=== PATIENT | female | born 1955 | race Caucasian/White ===

== ENCOUNTER 2016-07-16 15:33 | Observation (INO) | payer OTHER ==
--- NOTE | 2016-07-16 15:56 | CPEKG ---
Heart Rate: 112 RR Interval: 536 P-R Interval: 188 QRSD Interval: 88 QT Interval: 336 QTC Interval: 459 P [place]: 27 QRS [place]: 24 T Wave [place]: 24 EKG Severity - OTHERWISE NORMAL ECG - EKG Impression: SINUS TACHYCARDIA Electronically Signed By: Luigi Ramachandran 16-Jul-2016 16:17:08
[2016-07-16] MEDS ORDERED: NS 1,000 ML IV ONE ×2 (16:05→18:10)
--- NOTE | 2016-07-16 16:13 | EDPHY ---
H & P Stated Complaint: SOB, tingling all over body, L arm, face and jaw-1430 Time Seen by Provider: 07/16/16 15:43 HPI/ROS: CHIEF COMPLAINT: Weakness HISTORY OF PRESENT ILLNESS: The patient is a 60-year-old female who comes to the emergency department complaining of generalized weakness for the last week or 2 and now feeling of shortness of breath for the last 2 days and now for the last several hours tingling to both feet, hands, left arm and left side of her lips. She does not have any focal weakness. She has a history of severe Parkinson's disease. Her family seems to think that her symptoms began about 3 weeks ago when she had Botox injections her feet to control her toes from curling. She has been generally weak since that time. They state that this is normal but usually resolved after a couple of days. Also a week ago she saw her neurologist Dr. Pierre at [facility] ([place], [place]) [phone]. They decreased her Sinemet from 0.5 mg 4 times a day 0.25 mg 4 times a day also decreased her year becker from 1.5 mg to 1 mg. Also she has decreased her clonazepam from half a mg nightly to 0.25 mg every other night and added melatonin for sleep. She also began taking CBD well yesterday again. She has taken it in the past to help her with her dyskinesia symptoms. This is the same reason why she has decreased all of her other Parkinson's medications. She has not had any cold or cough symptoms. No fevers. REVIEW OF SYSTEMS: Constitutional: See HPI denies: chills, fever, recent illness, recent injury EENTM: denies: blurred vision, double vision, nose congestion Respiratory: denies: cough, shortness of breath Cardiac: denies: chest pain, irregular heart rate, lightheadedness, palpitations Gastrointestinal/Abdominal: denies: abdominal pain, diarrhea, nausea, vomiting, blood streaked stools Genitourinary: denies: dysuria, frequency, hematuria, pain Musculoskeletal: denies: joint pain, muscle pain Skin: denies: lesions, rash, jaundice, bruising Neurological: denies: headache, numbness, paresthesia, tingling, dizziness, weakness Hematologic/Lymphatic: denies: blood clots, easy bleeding, easy bruising Immunologic/allergic: denies: HIV/AIDS, transplant EXAM: GENERAL: Fatigued , well-nourished and in no acute distress. HEAD: Atraumatic, normocephalic. EYES: Pupils equal round and reactive to light, extraocular movements intact, sclera anicteric, conjunctiva are normal. ENT: TMs normal, nares patent, oropharynx clear without exudates. Moist mucous membranes. NECK: Normal range of motion, supple without lymphadenopathy or JVD. LUNGS: No respiratory distress, Breath sounds clear to auscultation bilaterally and equal. No wheezes rales or rhonchi. HEART: Regular rate and rhythm without murmurs, rubs or gallops. ABDOMEN: Soft, nontender, normoactive bowel sounds. No guarding, no rebound. No masses appreciated. BACK: No CVA tenderness, no spinal tenderness, step-offs or deformities EXTREMITIES: Normal range of motion, no pitting or edema. No clubbing or cyanosis. NEUROLOGICAL: Cranial nerves II through XII grossly intact. Normal speech, normal gait. 5/5 strength, normal movement in all extremities, normal sensation NIH stroke score 0, no pronator drift. PSYCH: Normal mood, normal affect. SKIN: Warm, dry, normal turgor, no visible rashes or lesions. Source: Patient Exam Limitations: No limitations - Personal History Current Tetanus/Diphtheria Vaccine: Yes Current Tetanus Diphtheria and Acellular Pertussis (TDAP): Yes Tetanus Vaccine Date: 2009 - Medical/Surgical History Hx Asthma: No Hx Chronic Respiratory Disease: No Hx Diabetes: No Hx Cardiac Disease: Yes Hx Renal Disease: No Hx Cirrhosis: No Hx Alcoholism: No Hx HIV/AIDS: No Hx Splenectomy or Spleen Trauma: No Other PMH: HTN, Hyperlipidemia, Parkinsons, cyst removed from chest 01.22, tubal ligation, angiogram x neg - Family History Significant Family History: No pertinent family hx - Social History Smoking Status: Never smoked Alcohol Use: Sober Drug Use: None Constitutional: Initial Vital Signs Temperature (C) 36.5 C 07/16/16 15:36 Heart Rate 120 H 07/16/16 15:36 Respiratory Rate 16 07/16/16 15:36 Blood Pressure 204/108 H 07/16/16 15:36 O2 Sat (%) 95 07/16/16 15:36 O2 Delivery Mode Nasal Cannula O2 (L/minute) 3 Allergies/Adverse Reactions: Iodinated Contrast Media - Oral and [IV Dye, Iodine Containing Contrast ] Allergy (Unknown, Verified 07/16/16 15:39) Home Medications: Medication Instructions Recorded Carbidopa/Levodopa 25/100Mg 0.25 - 0.5 tab PO QID 08/12/11 [Sinemet 25/100 MG (*)] [place]-3 Fatty Acids [Fish Oil 1000 1,000 mg PO DAILY 08/12/11 mg (OTC)] Cholecalciferol Vit D3 [Vitamin D3 3,000 unit PO DAILY 02/11/14 (*)] Entacapone [Comtan] 200 mg PO QID 02/11/14 Rosuvastatin Calcium [Crestor] 5 mg PO DAILY 02/11/14 Vitamin B Complex [B Complex] 1 each PO DAILY 02/11/14 amLODIPine BESYLATE [Norvasc 2.5 2.5 mg PO DAILY #0 tab 02/12/14 mg (*)] Carbidopa/Levo Cr 50/200Mg 1 tab PO HS 07/16/16 [SINEMET CR 50/200 MG (*)] Citalopram [CeleXA 20 MG] 20 mg PO DAILY 07/16/16 Herbals/Supplements -Info Only 1 ea PO DAILY 07/16/16 Pramipexole Di-HCl [Mirapex 1 mg 0.5 mg PO QID 07/16/16 (*)] Triamterene/Hydrochlorothiazid 1 each PO DAILY 07/16/16 [Triamterene-Hctz 37.5-25 mg Tb] clonazePAM [Klonopin (*)] 0.25 - 0.5 mg PO HS 07/16/16 Medical Decision Making - Diagnostics EKG Interpretation: An EKG obtained and was read and documented in trace view. Please see trace view for full reading and report. Sinus tachycardia, no acute ischemic changes A repeat EKG obtained and was read and documented in trace view. Please see trace view for full reading and report. Sinus tachycardia, improved compared to previous, no acute ischemic changes ED Course/Re-evaluation: 5:00 p.m. I discussed the case with the patient's neurologist Dr. Pierre at [facility]. He does not feel that the Botox for changes in her Parkinson's medication have anything to do with her acute presentation. The patient remains tachycardic 105 but improved from triage. She still feels generally weak and has tingling and paresthesias in both hands primarily left arm. Also in both feet. He she is also complaining of mild chest heaviness. Her EKG is unremarkable in her initial troponin is negative. We are awaiting flu swab and thyroid function test. Will also obtain a 2nd EKG. 6:05 p.m. the patient does not feel any better after Ativan. Her heart rate does fluctuate when she has episodes of chest tightness. No arrhythmia. 2nd EKG unremarkable. I will admit her for chest pain rule out and continued workup. 6:20 p.m. I discussed the case with Dr. Jose G Michel who will admit to the medical service. Differential Diagnosis: Partial list of the Differential diagnosis considered include but were not limited to; anxiety, acute coronary disease, arrhythmia, dehydration, influenza , medication reaction, electrolyte abnormality, thyroid abnormality and although unlikely based on the history and physical exam, I also considered sepsis, stroke, multiple sclerosis,. - Data Points Laboratory Results: Laboratory Results 07/16/16 15:50 07/16/16 15:50 07/16/16 07/16/16 07/16/16 16:55 16:15 15:50 WBC RBC Hgb Hct MCV MCH MCHC RDW Plt Count MPV Neut % (Auto) Lymph % (Auto) Moody % (Auto) Eos % (Auto) Baso % (Auto) Nucleat RBC Rel Count Absolute Neuts (auto) Absolute Lymphs (auto) Absolute Monos (auto) Absolute Eos (auto) Absolute Basos (auto) Absolute Nucleated RBC Immature Gran % Immature Gran # PT INR D-Dimer Sodium 139 mEq/L mEq/L (134-144) Potassium 3.3 mEq/L L mEq/L (3.5-5.2) Chloride 99 mEq/L mEq/L (97-110) Carbon Dioxide 26 mEq/l mEq/l (22-31) Anion Gap 14 mEq/L mEq/L (8-16) BUN 21 mg/dL mg/dL (7-23) Creatinine 0.8 mg/dL mg/dL (0.6-1.0) Estimated GFR > 60 Glucose 118 mg/dL H mg/dL (70-100) Calcium 10.3 mg/dL mg/dL (8.5-10.4) Total Bilirubin 0.9 mg/dL mg/dL (0.1-1.4) Conjugated Bilirubin 0.4 mg/dL mg/dL (0.0-0.5) Unconjugated Bilirubin 0.5 mg/dL mg/dL (0.0-1.1) AST 35 IU/L IU/L (14-46) ALT 40 IU/L IU/L (9-52) Alkaline Phosphatase 103 IU/L IU/L (38-126) Troponin I < 0.012 ng/mL ng/mL (0-0.034) Total Protein 9.0 g/dL H g/dL (6.3-8.2) Albumin 5.3 g/dL H g/dL (3.5-5.0) Lipase 112.0 IU/L IU/L (23-300) TSH 3.750 uIU/mL uIU/mL (0.465-4.680) Influenza Typ A,B (DFA) NEGATIVE FOR FLU (NEGATIVE) 07/16/16 07/16/16 15:50 15:50 WBC 6.55 10^3/uL 10^3/uL (3.80-9.50) RBC 5.35 10^6/uL H 10^6/uL (4.18-5.33) Hgb 16.1 g/dL g/dL (12.6-16.3) Hct 45.9 % % (38.0-47.0) MCV 85.8 fL fL (81.5-99.8) MCH 30.1 pg pg (27.9-34.1) MCHC 35.1 g/dL g/dL (32.4-36.7) RDW 13.3 % % (11.5-15.2) Plt Count 212 10^3/uL 10^3/uL (150-400) MPV 8.8 fL fL (8.7-11.7) Neut % (Auto) 57.8 % % (39.3-74.2) Lymph % (Auto) 32.1 % % (15.0-45.0) Moody % (Auto) 5.5 % % (4.5-13.0) Eos % (Auto) 3.4 % % (0.6-7.6) Baso % (Auto) 0.9 % % (0.3-1.7) Nucleat RBC Rel Count 0.0 % % (0.0-0.2) Absolute Neuts (auto) 3.79 10^3/uL 10^3/uL (1.70-6.50) Absolute Lymphs (auto) 2.10 10^3/uL 10^3/uL (1.00-3.00) Absolute Monos (auto) 0.36 10^3/uL 10^3/uL (0.30-0.80) Absolute Eos (auto) 0.22 10^3/uL 10^3/uL (0.03-0.40) Absolute Basos (auto) 0.06 10^3/uL 10^3/uL (0.02-0.10) Absolute Nucleated RBC 0.00 10^3/uL 10^3/uL (0-0.01) Immature Gran % 0.3 % % (0.0-1.1) Immature Gran # 0.02 10^3/uL 10^3/uL (0.00-0.10) PT 12.5 SEC SEC (12.0-15.0) INR 0.94 (0.83-1.16) D-Dimer 0.41 ug/mLFEU ug/mLFEU (0.00-0.50) Sodium Potassium Chloride Carbon Dioxide Anion Gap BUN Creatinine Estimated GFR Glucose Calcium Total Bilirubin Conjugated Bilirubin Unconjugated Bilirubin AST ALT Alkaline Phosphatase Troponin I Total Protein Albumin Lipase TSH Influenza Typ A,B (DFA) Medications Given: Discontinued Medications Acetaminophen (Tylenol) 1,000 mg PO EDNOW ONE Stop: 07/16/16 19:11 Last Admin: 07/16/16 19:10 Dose: 1,000 mg Sodium Chloride (Ns) 1,000 mls @ 0 mls/hr IV ONCE ONE PRN Reason: Wide Open Stop: 07/16/16 16:06 Last Admin: 07/16/16 16:18 Dose: 1,000 mls Sodium Chloride (Ns) 1,000 mls @ 0 mls/hr IV ONCE ONE PRN Reason: Wide Open Stop: 07/16/16 18:11 Last Admin: 07/16/16 18:55 Dose: 1,000 mls Lorazepam (Ativan Injection) 0.5 mg IVP EDNOW ONE Stop: 07/16/16 17:31 Last Admin: 07/16/16 17:35 Dose: 0.5 mg Departure - Departure Disposition: [facility] Inpatient Acute Clinical Impression: Paresthesias Chest pain Qualifiers: Chest pain type: unspecified Qualified Code(s): R07.9 - Chest pain, unspecified Condition: Fair
[2016-07-16 16:14] LABS: % IMMATURE GRANULYOCYTES 0.3 % (0.0-1.1); ABSOLUTE IMMATURE GRANULOCYTES 0.02 10^3/uL (0.00-0.10); ADD DIFF? NO; ADD MORPH? NO; ADD SCAN? NO; ATYPICAL LYMPHOCYTE FLAG 0 (0-99); FRAGMENT RBC FLAG 0 (0-99); HEMATOCRIT 45.9 % (38.0-47.0); HEMOGLOBIN 16.1 g/dL (12.6-16.3); LEFT SHIFT FLG 0 (0-99); LIPEMIA HEMOLYSIS FLAG 90 (0-99); MEAN CELL HEMOGLOBIN 30.1 pg (27.9-34.1); MEAN CELL HEMOGLOBIN CONCENTR. 35.1 g/dL (32.4-36.7); MEAN CELL VOLUME 85.8 fL (81.5-99.8); MEAN PLATELET VOLUME 8.8 fL (8.7-11.7); PLATELET CLUMPS FLAG 0 (0-99); PLATELET COUNT 212 10^3/uL (150-400); RED BLOOD CELL COUNT 5.35 10^6/uL (4.18-5.33); RED CELL DISTRIBUTION WIDTH 13.3 % (11.5-15.2)
[2016-07-16 16:20] LABS: ALANINE AMINOTRANSFERASE 40 IU/L (9-52); ALBUMIN 5.3 g/dL (3.5-5.0); ALKALINE PHOSPHATASE 103 IU/L (38-126); ANION GAP 14 mEq/L (8-16); ASPARTATE AMINOTRANSFERASE 35 IU/L (14-46); BILIRUBIN,TOTAL 0.9 mg/dL (0.1-1.4); BILIRUBIN-CONJUGATED 0.4 mg/dL (0.0-0.5); BILIRUBIN-UNCONJUGATED 0.5 mg/dL (0.0-1.1); CALCIUM 10.3 mg/dL (8.5-10.4); CARBON DIOXIDE 26 mEq/l (22-31); CHLORIDE 99 mEq/L (97-110); CREATININE 0.8 mg/dL (0.6-1.0); GLOMERULAR FILTRATION RATE > 60; GLUCOSE 118 mg/dL (70-100); POTASSIUM 3.3 mEq/L (3.5-5.2); SODIUM 139 mEq/L (134-144)
[2016-07-16 16:31] LABS: TROPONIN I < 0.012 ng/mL (0-0.034)
[2016-07-16 16:32] LABS: INR 0.94 (0.83-1.16); PROTIME(PATIENT) 12.5 SEC (12.0-15.0)
[2016-07-16] MEDS ORDERED: LORazepam 2 MG/ML INJ IVP ONE (17:30)
[2016-07-16] MEDS ORDERED: LORazepam 2 MG/ML INJ ONE (17:31)
--- NOTE | 2016-07-16 17:35 | CPEKG ---
Heart Rate: 103 RR Interval: 583 P-R Interval: 184 QRSD Interval: 90 QT Interval: 352 QTC Interval: 461 P [place]: 47 QRS [place]: 38 T Wave [place]: 13 EKG Severity - ABNORMAL ECG - EKG Impression: SINUS TACHYCARDIA EKG Impression: PROBABLE INFERIOR INFARCT, AGE INDETERMINATE Electronically Signed By: Luigi Ramachandran 16-Jul-2016 17:38:54
[2016-07-16] MEDS ORDERED: ACETAMINOPHEN 500 MG TAB ONE (19:08)
[2016-07-16] MEDS ORDERED: ACETAMINOPHEN 500 MG TAB PO ONE (19:10)
[2016-07-16] MEDS ORDERED: IBUPROFEN 600 MG TAB PO ONE (21:30)
[2016-07-16] MEDS ORDERED: NITROGLYCERIN 0.4 MG BTL SL PRN (21:45)
--- NOTE | 2016-07-16 22:27 | GHP ---
[f rep st] HISTORY AND PHYSICAL DATE OF ADMISSION: 07/16/2016 HISTORY OF PRESENT ILLNESS: The patient is a pleasant 60-year-old female with history of Parkinson disease and non flow limiting coronary disease who presents with an unusual constellation of symptom s that include some chest tightness as well as generalized weakness for the last couple of weeks. T immanuel, she had some chest tightness as well as tingling to her both hands and feet, and the side of h er lips. She denies panic attack symptoms such as hypoventilation or weights of anxiety. She was n ot hyperventilating. She was at work. She does note some increased stress with multiple medication changes as well as a stressful time at work, as she works in the tax industry. She has had a number of medication changes including Botox injections in her feet to prevent her toe s from curling, and she also had her Sinemet decreased from 0.5 mg 4 times daily to 0.25 four times daily, and her entacapone was decreased from 1.5-1 mg daily and she also had her clonazepam decrease d. She denies exertional symptoms. She had an angiogram performed by Dr. Casey Sutherland in February 27, showed [id number] coronary disease. This was done in response to presentation with modes tly elevated troponin. No fever, chills, cough, sputum. REVIEW OF SYSTEMS: Complete 10-point review of systems conducted, negative except as noted in the H PI. PAST MEDICAL HISTORY: 1. Parkinson's. 2. Hyperlipidemia. 3. Hypertension. 4. Non flow limiting coronary disease. 5. She had a times 4. SOCIAL HISTORY: She is . No tobacco or alcohol. FAMILY HISTORY: No family history of coronary disease. ALLERGIES: Contrast. MEDICATIONS: Clonazepam, Mirapex, citalopram, triamterene/hydrochlorothiazide, carbidopa levodopa, vitamin D3, entacapone, amlodipine, rosuvastatin and fish oil. PHYSICAL EXAM: VITAL SIGNS: Temp 36.7, blood pressure 129/89, pulse 94, breathing 20 times a minut e, 95% on 3 L. GENERAL: No acute distress. HEENT: Sclerae anicteric. Oropharynx clear. Mucous membranes are moist. NECK: Supple. No lymphadenopathy or JVD. LUNGS: Clear to auscultation bila terally. HEART: S1, S2 without murmurs. ABDOMEN: Soft, nontender, nondistended. LOWER EXTREMITI ES: Without edema. Calves nontender. SKIN: Without rash. NEUROLOGIC: Nonfocal. LABORATORY DATA: Sodium 139, potassium 3.3, chloride 99, bicarb 26, BUN 29, creatinine 0.6, glucose 118. LFTs normal. Troponin less than 0.012. Lipase 112, TSH 3.7. D-dimer is negative at 0.41. White count 6.5, hematocrit 46, platelets 212,000. She is influenza negative. EKG, interpreted by me, shows sinus tach at 103 with normal axis. Intervals of Q-wave in lead III. There are no ST or T-wave changes. She actually had 2 EKGs in the ER and they are essentially the same. Compared with the prior EKG, she has a little more prominent Q-wave in lead 3 but otherwise mostly unchanged from an EKG from January 2014. I discussed the case with Dr. Luigi Ramachandran. ASSESSMENT/PLAN: This is a 60-year-old female who presents with some tingling symptoms and some rose st pressure. 1. Chest pressure. She had negative troponin concerning for possible acute coronary syndrome etiol ogy. She has no EKG changes. We will cycle troponins. Perform exercise treadmill in the morning. I think we can hold off on echocardiogram. She had previously known normal ejection fraction and n o heart failure symptoms. 2. Parkinson's. We will continue her medicines. 3. Hyperlipidemia. Check a lipid panel in the morning. 4. Hypertension. Continue antihypertensives. 5. Tingling. She does not sound like she is hyperventilating. She has normal calcium. This may be a panic attack syndrome, although she does not seem close to panic to me now. Her daughter is c oncerned this represents stress. Certainly these symptoms all could be from stress although it is n ot certain at this time. DISPOSITION: Observation [facility]. /[id number]/MODL
[2016-07-16] MEDS ORDERED: CARBIDOPA/LEVO CR 50 MG/200 MG TAB PO SCH (23:00)
[2016-07-16] MEDS ORDERED: clonazePAM 0.5 MG TAB PO SCH (23:00)
[2016-07-17 04:39] VITALS: TEMP 98
[2016-07-17 05:01] LABS: CHOLESTEROL 172 mg/dL (140-220); CHOLESTEROL/HDL RATIO 3.91 RATIO (1.00-4.44); HIGH DENSITY LIPOPROTEIN 44 mg/dL (40-85); LDL/HDL RATIO 2.39 RATIO (1.00-3.22); LOW DENSITY LIPOPROTEIN 105 mg/dL (80-100); NON-HIGH DENSITY LIPOPROTEIN 128 mg/dL (90-129); TRIGLYCERIDE 118 mg/dL (35-135); VERY LOW DENSITY LIPOPROTEINS 23 mg/dL (8-25)
[2016-07-17 05:13] LABS: TROPONIN I < 0.012 ng/mL (0-0.034)
[2016-07-17] MEDS ORDERED: PRAMIPEXOLE 1 MG TAB PO SCH (06:00)
[2016-07-17] MEDS: CARBIDOPA/LEVODOPA 25 MG/100 MG TAB PO SCH ×2 (06:00→08:44)
[2016-07-17] MEDS ORDERED: ENTACAPONE 200 MG TAB PO SCH (06:00)
[2016-07-17 07:11] VITALS: O2SAT 95
--- NOTE | 2016-07-17 07:27 | CPEKG ---
Heart Rate: 85 RR Interval: 706 P-R Interval: 152 QRSD Interval: 92 QT Interval: 349 QTC Interval: 415 P [place]: 57 QRS [place]: 51 T Wave [place]: 78 EKG Severity - BORDERLINE ECG - EKG Impression: SINUS RHYTHM EKG Impression: BORDERLINE T ABNORMALITIES, ANT-LAT LEADS Electronically Signed By: Chelsey Ca 17-Jul-2016 15:12:40
[2016-07-17 08:16] VITALS: BP 132/88; PULSE 84; RESP 16
[2016-07-17] MEDS ORDERED: TRIAMTERENE/HCTZ 37.5/25 1 EACH TAB PO SCH (09:00)
[2016-07-17] MEDS ORDERED: CHOLECALCIFEROL VIT D3 1,000 UNITS TAB PO SCH (09:00)
[2016-07-17] MEDS ORDERED: CITALOPRAM 20 MG TAB PO SCH (09:00)
[2016-07-17] MEDS ORDERED: ASPIRIN 325 MG TAB PO SCH (09:00)
[2016-07-17] MEDS ORDERED: OMEGA-3 FATTY ACIDS 1,000 MG CAP PO SCH (09:00)
[2016-07-17] MEDS ORDERED: Herbals/Supplements -Info Only PO SCH (09:00)
[2016-07-17] MEDS ORDERED: VITAMIN B COMPLEX 1 EA CAP/TAB PO SCH ×2 (09:00)
[2016-07-17] MEDS ORDERED: ROSUVASTATIN CALCIUM 10 MG TAB PO SCH (09:00)
[2016-07-17] MEDS ORDERED: REGADENOSON 0.4 MG/5 ML SYR IVP ONE (09:25)
--- NOTE | 2016-07-17 11:11 | CPR ---
[f rep st] NONINVASIVE CARDIAC PROCEDURE REPORT DATE OF PROCEDURE: 07/17/2016 REASON FOR TEST: Chest pain with left arm tingling. Resting EKG shows a sinus rhythm with a rate of 93, oxygen saturation 91, blood pressure 128/80. EKG shows Late anterior-septal R-wave progression, and no ischemic changes. T-waves in the V leads are isoelectric. No other abnormalities or ectopy noted. This was started as an exercise treadmill test at 3-1/2 minutes. It was stopped due to chest pressure rated a 5. She was then switched to the Lexiscan stress test. There were no EKG changes noted on the treadmill. LEXISCAN NUCLEAR STRESS TEST: Resting 128/80, heart rate 117. Lexiscan was injected rapidly followed by saline flush. Cardiolite was then injected. She did feel flushing and some head pressure. There were no EKG changes. Lexiscan blood pressure 160/90, peak heart rate 114 oxygen saturation 97%. No ischemic changes noted on EKG. No ectopy. RECOVERY: She did spontaneously recover. Symptoms subsided within 1 minute. Caffeine was given. Recovery blood pressure 140/80, heart rate 97, oxygen saturation 97%. At conclusion of test, all symptoms have subsided. At this time, she currently is stable for nuclear imaging. /[id number]/MODL MTDD
--- NOTE | 2016-07-17 16:23 | GDS ---
[f rep st] DISCHARGE SUMMARY DISCHARGE DIAGNOSES: 1. Atypical chest pain. 2. Suspected panic attack. With tingling in her hands. 3. Parkinson disease. 4. Hyperlipidemia. 5. Hypertension. CONSULTANTS: [facility]. HOSPITAL COURSE AND STAY BY PROBLEM: Chest pressure: The patient was placed on observation, where she was not noted to have any arrhythmias on telemetry. We attempted a treadmill stress test but th is was canceled after she developed some pain with exertion. She then had a Lexiscan where the nucl ear images showed normal left ventricular ejection fraction of 83% with an equivocal tiny region of inferior lateral ischemia near the base of the heart. Meme from [facility] was consulted who did not think her pain was cardiac in etiology. She recommended increasing her amlodipine to 5 mg d aily and increasing her Crestor to 10 mg daily with LDL less than 70. At the time of discharge, the patient states she is feeling better. She is agreeable to be discharg ed home. She is educated to seek medical attention if she continues to have chest pain. PHYSICAL EXAMINATION: VITAL SIGNS: On day of discharge, blood pressure 132/88, pulse of 84, respir atory rate 16, O2 saturation 95% on room air. Temperature afebrile. HEART: S1, S2. LUNGS: Clear . ABDOMEN: Soft. EXTREMITIES: No edema. PERTINENT LABS AND STUDIES: Myocardial perfusion scan done 07/17/2016: Refer to report. DISCHARGE MEDICATIONS: Please refer to discharge medication reconciliation in [facility] for full det ails. Below is a preliminary list. New medications on hospital discharge: Norvasc was increased from 2.5 mg to 5 mg daily, Crestor was increased from 5 mg daily to 10 mg daily, aspirin 325 mg daily. All other home medications were continued at her usual home dosages. DISCHARGE INSTRUCTIONS: The patient will be discharged from the hospital where she should follow up at [facility] as directed next week. She should also follow up with her primary care provider t o further assess for underlying anxiety and panic disorder. /[id number]/MODL
--- NOTE | 2016-07-17 19:09 | GHP ---
[f rep st] HISTORY AND PHYSICAL DATE OF ADMISSION: 07/16/2016 REASON FOR CONSULT: 1. Chest pain. 2. Marginally positive nuclear stress test. We were asked by the hospitalist, Dr. Julien Tate, to consult regarding her chest discomfort and nuclear stress test result. HISTORY OF PRESENT ILLNESS: The patient does have a history of known nonobstructive coronary artery disease seen on cardiac angiogram done in 2013. At that time, she had a 30% to 40% stenosis present in the mid segment of the LAD. She came to the emergency room having chest discomfort and arm tingling. She has noticed this over the past few days and it has been waxing and waning. Rating the discomfort a 3/10. 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 At times, she has felt like she could have a panic attack. She has been diagnosed with Parkinson disease and this presents a new constellation of symptoms that make it hard for her to sort out where the pain is coming from at times. At time of her stress test, she did have increasing chest discomfort while on the treadmill and the test was switched to a Lexiscan nuclear stress test. She did tolerate this well and had appropriate blood pressure response to the testing. At time of my visit, she is feeling much better. Her anxiety level has diminished. She is recognizing that her stress level is likely contributing to this chest discomfort. Today, she made the decision that she is not going to go back to work, as she does realize it is causing her significant anxiety. She is in no distress at the time of my visit. REVIEW OF SYSTEMS: A 10-point review is negative except for that noted in the HPI. PAST MEDICAL HISTORY: 1. Nuq-beqy-rpuqasdh coronary artery disease. 2. Hyperlipidemia. 3. Hypertension. 4. Parkinson's. SOCIAL HISTORY: She is . She does have a significant other gentleman. She does not use tobacco or alcohol. FAMILY HISTORY: No family history of coronary artery disease. MEDICATIONS: She currently is on amlodipine, rosuvastatin, fish oil, triamterene/hydrochlorothiazide, citalopram, carbidopa/levodopa, vitamin D3, entacapone. ALLERGIES: Contrast dye. PHYSICAL EXAMINATION: VITAL SIGNS: Blood pressure 132/88, heart rate 84 and regular, oxygen saturation 95% on room air. HEART: Rate regular. No murmurs, rubs, or gallops. LUNGS: Sounds are clear to auscultation. No wheezes, rales , or rhonchi. Carotid pulses are equal bilaterally. ABDOMEN: Soft, and nontender. EXTREMITIES: Peripheral pulses are 2+ bilaterally with no edema. REPORTS: EKG showed a regular sinus rhythm with late R-wave progression in the anterior septal leads. T-waves were isoelectric Nuclear myocardial perfusion study impression: 1. Normal left ventricular ejection fraction of approximately 83%. 2. Equivocal tiny region of inferolateral ischemia near the base of the heart. 3. No focal wall motion abnormalities. LAB: White count 6.55, red blood count 5.35, hemoglobin 16.1, hematocrit 45.9, D-dimer 0.41, INR 0.94. Chemistry: Sodium 139, potassium 3.3, glucose 118, BUN 21, creatinine 0.8. Troponin 0.012. Lipids: Total cholesterol 172, triglycerides 118, LDL cholesterol 105, HDL cholesterol 44, TSH 3.75. DISCUSSION: Her nuclear stress test results were reviewed with Dr. Tres Maurer. We also reviewed her cardiac angiogram that was done in 2013. The nuclear stress test was trivially positive, showing a tiny region of inferior- lateral ischemia. It was not felt that this was significant to warrant further testing with a cardiac angiogram. This was discussed at length with Dr. Tres Maurer, taking into consideration her chest discomfort in relation to the results of the nuclear stress test. PLAN: We will optimize her current medical regimen in an attempt to manage her blood pressure a little tighter and work toward her LDL cholesterol level being at 70 or below with known coronary artery disease. Her amlodipine will be increased from 2.5 to 5 mg daily and Crestor will be increased from 5 mg to 10 mg daily. It is likely that the Crestor dosing will need to be higher. However , taking into consideration her Parkinson disease we will up-titrate it slowly. She will continue on her aspirin 325 mg daily, fish oil 1000 mg twice daily, and triamterene/hydrochlorothiazide 37.5/25 mg daily. We will plan to check her lipids and liver function tests in 6 weeks. She will follow up at [facility] in 1 week and we will reassess her status at that time. She is in agreement with this plan. This plan was communicated to Dr. Dru Tate and he is in agreement. Thank you very much for asking us to be a part of this nice lady's care. /[id number]/MODL MTDD
[2016-07-18] MEDS ORDERED: amLODIPine BESYLATE 5 MG TAB PO SCH (09:00)
[2016-07-18] MEDS ORDERED: ROSUVASTATIN CALCIUM 10 MG TAB PO SCH (09:00)
== END 2016-07-17 17:20 | disposition home or self-care (01) ==
LOC: F1N 19:35
PROVIDERS: ADMIT Internal Medicine; ATTEND Internal Medicine
DX: R07.89 Other chest pain (principal); R20.2 Paresthesia of skin; G20 Parkinson's disease; I25.10 Atherosclerotic heart disease of native coronary artery without angina pectoris; E78.5 Hyperlipidemia, unspecified; I10 Essential (primary) hypertension; R00.0 Tachycardia, unspecified
CPT/HCPCS: 78452; 93005; 93017; 96361; 96374; 99285; A9500; G0378; J2785

== ENCOUNTER 2016-07-19 18:02 | Observation (INO) | payer OTHER ==
--- NOTE | 2016-07-19 18:22 | EDPHY ---
H & P Stated Complaint: h/a, L facial and arm "tingling" same s/s as recent hospit Time Seen by Provider: 07/19/16 18:15 HPI/ROS: Chief complaint: Fatigue, left face, arm, and leg tingling, chest pain HPI: 60-year-old female with a history of Parkinson's disease recently admitted 2 days ago for chest pain and shortness of breath. Patient went home feeling well but developed a headache that evening and was tired went to bed. She woke up Thursday morning felt well went for a 2 mi walk. Later in the afternoon developed a headache and some tingling in the left side of her face and arm. Again she went to bed last night. This morning felt well again. This afternoon while shopping developed the and tingling in the left side of her face left arm and left leg and developed a 5/10 frontal headache. She has also been having some chest pain with exertion. Has not had any fevers or chills. No nausea or vomiting. Did touch base with her neurologist for Parkinson's disease, Dr. Pierre, who did not think this was related to recent changes in her Parkinson's medications. They called their primary care physician and was instructed to come to the emergency department for further evaluation. ROS: 10 point Review of Systems is negative except as noted in the HPI. Past medical history: Parkinson's disease Allergies: Contrast dye, uncertain whether this is MRI contrast or CT scan contrast Physical exam: Gen: Awake, Alert, No Distress HEENT: Nose: no rhinorrhea Eyes: PERRLA, EOMI Mouth: Moist mucosa Neck: Supple, no JVD Chest: nontender, lungs clear to auscultation Heart: S1, S2 normal, no murmur Abd: Soft, non-tender, no guarding Back: no CVA tenderness, no midline tenderness Ext: no edema, non-tender Skin: no rash Neuro: CN II-XII intact, Sensation grossly intact, Strength 5/5 in bilateral upper and lower extremities - Personal History Current Tetanus/Diphtheria Vaccine: Unsure Current Tetanus Diphtheria and Acellular Pertussis (TDAP): Unsure Tetanus Vaccine Date: 2009 - Medical/Surgical History Hx Asthma: No Hx Chronic Respiratory Disease: No Hx Diabetes: No Hx Cardiac Disease: Yes Hx Renal Disease: No Hx Cirrhosis: No Hx Alcoholism: No Hx HIV/AIDS: No Hx Splenectomy or Spleen Trauma: No Other PMH: HTN, Hyperlipidemia, Parkinsons, cyst removed from chest 9.14, tubal ligation, angiogram x neg - Social History Smoking Status: Never smoked Constitutional: Initial Vital Signs Temperature (C) 36.7 C 07/19/16 18:05 Heart Rate 112 H 07/19/16 18:05 Respiratory Rate 18 07/19/16 18:05 Blood Pressure 185/96 H 07/19/16 18:05 O2 Sat (%) 95 07/19/16 18:05 O2 Delivery Mode Room Air Allergies/Adverse Reactions: Iodinated Contrast Media - Oral and [IV Dye, Iodine Containing Contrast ] Allergy (Unknown, Verified 07/16/16 15:39) Home Medications: Medication Instructions Recorded Carbidopa/Levodopa 25/100Mg 0.25 - 0.5 tab PO QID 08/12/11 [Sinemet 25/100 MG (*)] [place]-3 Fatty Acids [Fish Oil 1000 1,000 mg PO DAILY 08/12/11 mg (*)] Cholecalciferol Vit D3 [Vitamin D3 3,000 unit PO DAILY 02/11/14 (*)] Entacapone [Comtan] 200 mg PO QID 02/11/14 Vitamin B Complex [B Complex] 1 each PO DAILY 02/11/14 Carbidopa/Levo Cr 50/200Mg 1 tab PO HS 07/16/16 [SINEMET CR 50/200 MG (*)] Citalopram [CeleXA 20 MG] 20 mg PO DAILY 07/16/16 Herbals/Supplements -Info Only 1 ea PO DAILY 07/16/16 Pramipexole Di-HCl [Mirapex 1 mg 0.5 mg PO QID 07/16/16 (*)] Triamterene/Hydrochlorothiazid 1 each PO DAILY 07/16/16 [Triamterene-Hctz 37.5-25 mg Tb] clonazePAM [Klonopin (*)] 0.25 - 0.5 mg PO HS 07/16/16 Aspirin [Aspirin 325 mg (*)] 325 mg PO DAILY #0 tab 07/17/16 Rosuvastatin Calcium [Crestor] 10 mg PO DAILY #30 tab 07/17/16 amLODIPine BESYLATE [Norvasc 5 mg 5 mg PO DAILY #30 tab 07/17/16 (*)] Departure - Departure Referrals: Alise Alanis MD [Primary Care Provider] - As per Instructions
[2016-07-19 19:07] LABS: % IMMATURE GRANULYOCYTES 0.2 % (0.0-1.1); ABSOLUTE IMMATURE GRANULOCYTES 0.01 10^3/uL (0.00-0.10); ADD DIFF? NO; ADD MORPH? NO; ADD SCAN? NO; ATYPICAL LYMPHOCYTE FLAG 0 (0-99); FRAGMENT RBC FLAG 0 (0-99); HEMATOCRIT 45.1 % (38.0-47.0); HEMOGLOBIN 15.7 g/dL (12.6-16.3); LEFT SHIFT FLG 0 (0-99); LIPEMIA HEMOLYSIS FLAG 90 (0-99); MEAN CELL HEMOGLOBIN CONCENTR. 34.8 g/dL (32.4-36.7); MEAN CELL VOLUME 86.1 fL (81.5-99.8); MEAN PLATELET VOLUME 8.7 fL (8.7-11.7); PLATELET CLUMPS FLAG 0 (0-99); PLATELET COUNT 183 10^3/uL (150-400); RED BLOOD CELL COUNT 5.24 10^6/uL (4.18-5.33); RED CELL DISTRIBUTION WIDTH 13.2 % (11.5-15.2)
[2016-07-19 19:12] LABS: COLOR YELLOW; LEUKOCYTE ESTERASE,URINE NEGATIVE (NEGATIVE); NITRITE,URINE NEGATIVE (NEGATIVE)
[2016-07-19] MEDS ORDERED: ONDANSETRON DISINTEGRATING 4 MG TAB PO PRN (19:21)
[2016-07-19] MEDS ORDERED: ACETAMINOPHEN 325 MG TAB PO PRN (19:21)
[2016-07-19] MEDS ORDERED: ONDANSETRON 4 MG/2 ML VIAL IVP PRN (19:21)
[2016-07-19 19:27] LABS: ANION GAP 12 mEq/L (8-16); CARBON DIOXIDE 28 mEq/l (22-31); CHLORIDE 96 mEq/L (97-110); CREATININE 0.8 mg/dL (0.6-1.0); GLOMERULAR FILTRATION RATE > 60; GLUCOSE 105 mg/dL (70-100); POTASSIUM 3.6 mEq/L (3.5-5.2); SODIUM 136 mEq/L (134-144)
[2016-07-19] MEDS ORDERED: ACETAMINOPHEN 500 MG TAB ONE (19:31)
[2016-07-19 19:37] LABS: TROPONIN I < 0.012 ng/mL (0-0.034)
[2016-07-19] MEDS ORDERED: ACETAMINOPHEN 500 MG TAB PO ONE (19:41)
--- NOTE | 2016-07-19 19:42 | CPEKG ---
Heart Rate: 99 RR Interval: 606 P-R Interval: 132 QRSD Interval: 76 QT Interval: 356 QTC Interval: 457 P Edwards: 44 QRS Edwards: 37 T Wave Edwards: 3 EKG Severity - BORDERLINE ECG - EKG Impression: SINUS RHYTHM EKG Impression: BORDERLINE T WAVE ABNORMALITIES Electronically Signed By: Rehan Wilcox 19-Jul-2016 22:43:33
[2016-07-19] MEDS ORDERED: LABETALOL HCL 5 MG/ML 20 ML MDV IVP ONE (20:17)
[2016-07-19] MEDS ORDERED: LABETALOL HCL 5 MG/ML 20 ML MDV IVP PRN (20:19)
--- NOTE | 2016-07-19 20:35 | PDGENHP ---
History and Physical - Chief Complaint Headache, facial, hand and leg numbness, chest tightness, SOB - History of Present Illness 60 yo female with h/o Parkinson's disease, hypertension and non flow limiting CAD presents to ED complaining of facial, hand and leg numbness, along with headache, chest tightness and difficulty breathing. She was admitted just 2 days ago with atypical chest pain, had negative troponins and a non-ischemic EKG. Cardiology consult reviewed her stress test, which showed a tiny focus of ischemia. She was not deemed a candidate for angiogram at that time. She notes increased stress in her life and just quit her job yesterday, citing "I have to take care of myself". Today, she developed b/l facial numbness, which moves around from her nose and mouth to her lips and chin. She has also had intermittent b/l hand numbness and left leg numbness. Currently, she complains of headache. No nuchal rigidity. No fevers. No N/V/D. She reports trouble breathing, denies pleuritic chest pain. Initial workup in the ED again reveals a non-ischemic EKG, negative troponin and negative head CT. She is admitted to the hospital for further evaluation. History Information - Allergies/Home Medication List Allergies/Adverse Reactions: Iodinated Contrast Media - Oral and [IV Dye, Iodine Containing Contrast ] Allergy (Unknown, Verified 07/16/16 15:39) Home Medications: Carbidopa/Levodopa 25/100Mg [Sinemet 25/100 MG (*)] 0.25 - 0.5 tab PO QID [Last Taken 02/10/14] [place]-3 Fatty Acids [Fish Oil 1000 mg (*)] 1,000 mg PO DAILY 08/12/11 [Last Taken 02/10/14] Cholecalciferol Vit D3 [Vitamin D3 (*)] 3,000 unit PO DAILY 02/11/14 [Last Taken 02/10/14] Entacapone [Comtan] 200 mg PO QID 02/11/14 [Last Taken 02/10/14] Vitamin B Complex [B Complex] 1 each PO DAILY 02/11/14 [Last Taken 02/10/14] Carbidopa/Levo Cr 50/200Mg [SINEMET CR 50/200 MG (*)] 1 tab PO HS 07/16/16 [ Last Taken Unknown] Citalopram [CeleXA 20 MG] 20 mg PO DAILY 07/16/16 [Last Taken Unknown] Herbals/Supplements -Info Only 1 ea PO DAILY 07/16/16 [Last Taken Unknown] Pramipexole Di-HCl [Mirapex 1 mg (*)] 0.5 mg PO QID 07/16/16 [Last Taken Unknown ] Triamterene/Hydrochlorothiazid [Triamterene-Hctz 37.5-25 mg Tb] 1 each PO DAILY 07/16/16 [Last Taken Unknown] clonazePAM [Klonopin (*)] 0.25 - 0.5 mg PO HS 07/16/16 [Last Taken Unknown] I have personally reviewed and updated: family history, medical history, social history, surgical history - Past Medical History coronary artery disease, hypertension, hyperlipidemia Additional medical history: CAD, cath in 2013 showed non-flow limiting CAD 30-40 % stenosis - Surgical History Reports: no pertinent surgical hx - Family History Positive for: non-pertinent - Social History Smoking Status: Never smoked Alcohol Use: None Drug Use: None Additional social history: Pt is . 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 Review of Systems ROS: 10pt was reviewed & negative except for what was stated in HPI & below Physical Exam Temp Pulse Resp BP Pulse Ox 36.7 C 112 H 18 185/96 H 95 07/19/16 18:05 07/19/16 18:05 07/19/16 18:05 07/19/16 18:05 07/19/16 18:05 Constitutional: no apparent distress Eyes: PERRL Ears, Nose, Mouth, Throat: moist mucous membranes Cardiovascular: regular rate and rhythym, no murmur, rub, or gallop Respiratory: no respiratory distress, clear to auscultation Gastrointestinal: normoactive bowel sounds, soft, non-tender abdomen Skin: warm Musculoskeletal: other (decreased muscle strength b/l LE's proximally 4/5) Neurologic: AAOx3 Psychiatric: flat affect Lab Data & Imaging Review 07/19/16 18:55 07/19/16 18:55 WBC 4.23 10^3/uL (3.80-9.50) 07/19/16 18:55 RBC 5.24 10^6/uL (4.18-5.33) 07/19/16 18:55 Hgb 15.7 g/dL (12.6-16.3) 07/19/16 18:55 Hct 45.1 % (38.0-47.0) 07/19/16 18:55 MCV 86.1 fL (81.5-99.8) 07/19/16 18:55 MCH 30.0 pg (27.9-34.1) 07/19/16 18:55 MCHC 34.8 g/dL (32.4-36.7) 07/19/16 18:55 RDW 13.2 % (11.5-15.2) 07/19/16 18:55 Plt Count 183 10^3/uL (150-400) 07/19/16 18:55 MPV 8.7 fL (8.7-11.7) 07/19/16 18:55 Neut % (Auto) 51.9 % (39.3-74.2) 07/19/16 18:55 Lymph % (Auto) 36.6 % (15.0-45.0) 07/19/16 18:55 [place] % (Auto) 5.9 % (4.5-13.0) 07/19/16 18:55 Eos % (Auto) 4.5 % (0.6-7.6) 07/19/16 18:55 Baso % (Auto) 0.9 % (0.3-1.7) 07/19/16 18:55 Nucleat RBC Rel Count 0.0 % (0.0-0.2) 07/19/16 18:55 Absolute Neuts (auto) 2.19 10^3/uL (1.70-6.50) 07/19/16 18:55 Absolute Lymphs (auto) 1.55 10^3/uL (1.00-3.00) 07/19/16 18:55 Absolute Monos (auto) 0.25 10^3/uL (0.30-0.80) L 07/19/16 18:55 Absolute Eos (auto) 0.19 10^3/uL (0.03-0.40) 07/19/16 18:55 Absolute Basos (auto) 0.04 10^3/uL (0.02-0.10) 07/19/16 18:55 Absolute Nucleated RBC 0.00 10^3/uL (0-0.01) 07/19/16 18:55 Immature Gran % 0.2 % (0.0-1.1) 07/19/16 18:55 Immature Gran # 0.01 10^3/uL (0.00-0.10) 07/19/16 18:55 Sodium 136 mEq/L (134-144) 07/19/16 18:55 Potassium 3.6 mEq/L (3.5-5.2) 07/19/16 18:55 Chloride 96 mEq/L (97-110) L 07/19/16 18:55 Carbon Dioxide 28 mEq/l (22-31) 07/19/16 18:55 Anion Gap 12 mEq/L (8-16) 07/19/16 18:55 BUN 18 mg/dL (7-23) 07/19/16 18:55 Creatinine 0.8 mg/dL (0.6-1.0) 07/19/16 18:55 Estimated GFR > 60 07/19/16 18:55 Glucose 105 mg/dL (70-100) H 07/19/16 18:55 Calcium 10.0 mg/dL (8.5-10.4) 07/19/16 18:55 Troponin I < 0.012 ng/mL (0-0.034) 07/19/16 18:55 Urine Color YELLOW 07/19/16 18:55 Urine Appearance CLEAR 07/19/16 18:55 Urine pH 5.0 (5.0-7.5) 07/19/16 18:55 Ur Specific [place] 1.006 (1.002-1.030) 07/19/16 18:55 Urine Protein NEGATIVE (NEGATIVE) 07/19/16 18:55 Urine Ketones NEGATIVE (NEGATIVE) 07/19/16 18:55 Urine Blood NEGATIVE (NEGATIVE) 07/19/16 18:55 Urine Nitrate NEGATIVE (NEGATIVE) 07/19/16 18:55 Urine Bilirubin NEGATIVE (NEGATIVE) 07/19/16 18:55 Urine Urobilinogen NEGATIVE EU (0.2-1.0) 07/19/16 18:55 Ur Leukocyte Esterase NEGATIVE (NEGATIVE) 07/19/16 18:55 Urine Glucose NEGATIVE (NEGATIVE) 07/19/16 18:55 Assessment & Plan Assessment: Paresthesias - These symptoms seem to migrate and are not focal. CT head is negative. Will check brain MRI and obtain neurology consult for tomorrow. She recently had her Parkinson's medications adjusted, though her primary neurologist did not think that would explain her symptoms. Consider anxiety component. Chest pain and SOB - She is neither tachypneic nor hypoxic. She is tachycardic and given her reported pleuritic symptoms, will check a d dimer. Trop remains neg. EKG unchanged from prior, remains non-ischemic with non-specific T wave changes. Reviewed recent stress test from 07/17, which showed a tiny area of inferolateral ischemia. Will trend troponin and repeat EKG. If symptoms persist, consider re-consulting cardiology. Cont ASA, statin, prn ntg. Hypertension - Amlodipine dose recently increased to 5 mg daily. Will give 10 mg IV labetalol now with prn labetalol for BP control. Resume Norvasc, may need further up-titration. Hyperlipidemia - cont statin. Full code Dispo - obs
[2016-07-19] MEDS ORDERED: DOCUSATE SODIUM 100 MG CAP PO PRN (21:57)
[2016-07-19] MEDS ORDERED: POLYETHYLENE GLYCOL 3350 17 GM PKT PO PRN (21:57)
[2016-07-19] MEDS ORDERED: clonazePAM 0.5 MG TAB PO SCH (22:30)
[2016-07-19] MEDS ORDERED: CARBIDOPA/LEVO CR 50 MG/200 MG TAB PO SCH (22:30)
[2016-07-19] MEDS: ASPIRIN 325 MG TAB PO SCH (23:15)
[2016-07-20] MEDS: CARBIDOPA/LEVODOPA 25 MG/100 MG TAB PO SCH ×3 (05:56→13:56)
[2016-07-20] MEDS: ENTACAPONE 200 MG TAB PO SCH ×3 (05:56→13:59)
[2016-07-20] MEDS: PRAMIPEXOLE 1 MG TAB PO SCH ×3 (05:59→14:00)
[2016-07-20] MEDS: ASPIRIN 325 MG TAB PO SCH (06:29)
[2016-07-20 06:32] VITALS: RESP 16
[2016-07-20] MEDS ORDERED: TRIAMTERENE/HCTZ 37.5/25 1 EACH TAB PO SCH (09:00)
[2016-07-20] MEDS ORDERED: CITALOPRAM 20 MG TAB PO SCH (09:00)
[2016-07-20] MEDS ORDERED: amLODIPine BESYLATE 5 MG TAB PO SCH (09:00)
[2016-07-20] MEDS ORDERED: CHOLECALCIFEROL VIT D3 1,000 UNITS TAB PO SCH (09:00)
[2016-07-20] MEDS ORDERED: ROSUVASTATIN CALCIUM 20 MG TAB PO SCH ×2 (09:00)
[2016-07-20] MEDS ORDERED: ROSUVASTATIN CALCIUM 10 MG TAB PO SCH (09:00)
--- NOTE | 2016-07-20 10:02 | CPEKG ---
Heart Rate: 71 RR Interval: 845 P-R Interval: 148 QRSD Interval: 82 QT Interval: 412 QTC Interval: 448 P [place]on: 38 QRS [place]on: 62 T Wave [place]: 79 EKG Severity - BORDERLINE ECG - EKG Impression: SINUS RHYTHM EKG Impression: BORDERLINE T WAVE ABNORMALITIES Electronically Signed By: Chelsey Ca 20-Jul-2016 20:10:20
[2016-07-20 10:11] VITALS: BP 146/88
[2016-07-20 12:08] VITALS: PULSE 64; TEMP 98.3; O2SAT 95
--- NOTE | 2016-07-20 14:56 | PDCONSULT ---
Career Placement Specialist Note: HOSPITAL NEUROLOGY CONSULT REQUESTING: Mel Yuen DO REASON: paresthesias HPI: This is a 60-year-old right-handed woman with a history of idiopathic Parkinson disease who presented to our emergency department with migratory paresthesias. The patient had been evaluated in our emergency department 2 days prior to admission for chest tightness which was found to not be any sort of acute coronary event. Since that time, the patient has continued to feel episodic tightness in her chest and throat. She had also been experiencing episodic and migratory paresthesias, namely around the lips and in the fingers of both hands and to a lesser degree the left leg and foot. These occur independently of each other and without warning. However, they do tend to occur when she gets the sensation of tightness in the chest and throat. She also describes a sense of shortness of breath/not being able to catch her breath with these episodes. She endorses significant stress in her life recently, namely related to her job , from which she retired 2 days prior to admission. She has been maintained on an SSRI for her depression but has not previously had any episodes of panic. She denies any focal/lateralizing weakness, speech/language disturbance, visual disturbance, headache, gait disturbance, fevers, chills, neck stiffness. She has no prior history of stroke or TIA. ROS: As per the HPI, otherwise a complete 12 point ROS was performed and is negative ALLERGIES AND MEDS: As recorded in the EMR - reviewed and reconciled PFSH: As per the intake H&P by Dr. Yuen from 07/19/16 EXAM: VS reviewed in EMR GEN: WDWN laying in NAD HEENT: NCAT, sclera anicteric, conjunctiva not injected, MMM, oropharynx clear, no scalp tenderness NECK: supple, nontender, no meningismus CV: RRR s1 s2 wo m/r/c/g. Carotid pulses 2+ wo bruit NEURO: MS: awake, alert, oriented to all spheres. Speech nondysarthric. No language disturbance. Follows commands. Attends to both sides. Recent/remote memory grossly intact. Mood euthymic. Good fund of knowledge. CN: pupils 3mm round and reactive. Fundi with sharp discs. VFF. Primary gaze centered. Full ocular motility. Facial sensation preserved. Face symmetric. Hearing grossly intact to finger rub. Palatoglossal movements intact. Shoulder shrug and head turn strong. MOTOR: normal bulk/tone. No adventitial movements. Full power throughout. SENSORY: intact to all modalities throughout. No extinction. COORD: no ataxia FN/HS. Frieda preserved. Romberg neg. REFLEX: plantars down. No clonus. DTRS 2/4. GAIT: rises unassisted. Narrow base. Intact stride length/heel strike/toe lift /arm swing. Turns with 2 steps. Able to tandem without difficulty. DATA REVIEW: Labs reviewed in EMR PERSONALLY INTERPRETED RESULTS AND DATA: MRI brain wo - scattered areas of subcortical T2 FLAIR hyperintensity likely reflective of chronic microvascular ischemic change. No acute ischemia. IMPRESSION AND RECOMMENDATIONS: // SUSPECT ANXIETY/PANIC DISORDER Patient with episodes of migratory paresthesias, particularly around the lips and fingers, with associated chest/neck tightness and a sense of difficulty catching her breath. Given the migratory and namely perioral/distal upper extremity may have the sensations, highly suspect anxiety. Certainly does seem like a stroke or TIA. She does have a of having Parkinson disease, which does carry a high risk of concomitant mood disorder. We discussed how she should follow-up in the outpatient setting for further optimization of her mood medications with specific attention to her anxiety. I also recommended engaging with a therapist for further identification of stressors and for development of coping strategies. She is interested in a 2nd opinion with me regarding her Parkinson disease and I told her she can call our office for follow-up appointment. No further neurodiagnostics or interventions at this time. She can be discharged from a neurologic perspective.
--- NOTE | 2016-07-20 17:41 | PDDCSUM ---
Discharge Summary Discharge Summary: Date of Admission: 07/19/2016 Date of Discharge: 07/20/2016 Discharge Diagnoses: Generalized anxiety disorder with panic attacks Possible coronary vasospasm Parkinson disease Hypertension Hyperlipidemia Admission Diagnoses: Paresthesia Chest pain and shortness of breath Hypertension Hyperlipidemia Parkinson disease Hospital Course: The patient is a 60-year-old female with a history of Parkinson disease who presented to the hospital with migratory paresthesias and intermittent chest pain. Chest pain was described as episodic tightness in the chest with radiation to the throat. She also had numbness that with migratory, sometimes perioral, in her left leg and foot, or in the fingers of both hands. Patient had recently undergone a stress test and had seen Cardiology in a recent hospitalization several days earlier. During that visit, she was deemed not to be a candidate for angiogram because there was no intervenable, concerning defect on the stress test. Since patient presented with additional symptoms of numbness and tingling, an MRI was performed which revealed no concerning changes that could account for her symptoms. Neurologist Dr. Christianson was consulted. It seems that most of her symptoms are related to anxiety , probably related to multiple psychosocial stressors in her life. Patient also discussed her case with a electrician substation supervisor who recommended to try nitroglycerin for possible coronary vasospasm when she has these episodes of chest pain. Patient has a follow-up appointment scheduled with [facility] on Thursday. Patient also plans to follow up with Dr. Christianson for a 2nd opinion regarding her Parkinson disease. Physical Exam: General: The patient is a middle-aged female who is alert and in no acute distress. HEENT: normocephalic, extraocular movements intact, conjunctivae clear, no lesions on face. Mucous membranes moist. Neck: trachea midline, no visible masses, no external lesions. CV: +S1/S2, RRR, no MRG. Resp: unlabored, CTAB no RRW. Abd: soft and nondistended. Musculoskeletal: Normal gait. Normal muscle tone and bulk. Neuro: cranial nerves II XII grossly intact. Intact gross motor and sensory function. Psych: appropriate mood/affect. Skin: No pallor. Heme/lymph: No peripheral edema. Condition: Stable. Discharged to: Home. Pertinent tests/labs/imaging: MRI BRAIN w/o contrast: 1. No ischemia or intracranial hemorrhage. 2. Minimal subcortical white matter disease and atrophy has developed since April 2007. Low suspicion for demyelinating process such as multiple sclerosis. EKG: NSR, nonspecific T-wave flattening throughout all leads. Head CT: No acute intracranial abnormality. Medications: Please see medication reconciliation form. Patient is continuing her home medications. Providing her with a prescription for nitroglycerin sublingual tablets, 0.4 mg, to take as needed for chest pain. Special instructions: Warned the patient that nitroglycerin can commonly cause hypotension and headaches. Follow up: Follow up with primary care physician Dr. Alise Alanis within 1-2 weeks. Follow up with [facility] in 2 days as planned. May make an appointment with Dr. Tres Maurer at [facility] in the future as well. Follow up with neurologist Dr. Christianson in 2-4 weeks. Greater than 30 minutes of total time was spent on counseling and coordination of care for this patient's discharge.
[2016-07-20] MEDS ORDERED: CARBIDOPA/LEVO CR 50 MG/200 MG TAB PO SCH (21:00)
--- NOTE | 2016-07-21 14:58 | CPEKG ---
Heart Rate: 70 RR Interval: 857 P-R Interval: 144 QRSD Interval: 86 QT Interval: 420 QTC Interval: 454 P [place]: 35 QRS [place]: 56 T Wave [place]: 81 EKG Severity - BORDERLINE ECG - EKG Impression: SINUS RHYTHM EKG Impression: BORDERLINE T WAVE ABNORMALITIES Preliminary Awaiting MD Review
== END 2016-07-20 17:40 | disposition home or self-care (01) ==
LOC: F1N 21:35
PROVIDERS: ADMIT Hospitalist; ATTEND Hospitalist
DX: F41.1 Generalized anxiety disorder (principal); F41.0 Panic disorder [episodic paroxysmal anxiety]; G20 Parkinson's disease; I10 Essential (primary) hypertension; E78.5 Hyperlipidemia, unspecified
CPT/HCPCS: 70450; 70551; 93005; G0378

== ENCOUNTER 2016-08-26 09:36 | Day surgery (SDC) | payer OTHER ==
[2016-08-26] MEDS ORDERED: DIAZEPAM 5 MG TAB PO ONE (09:40)
[2016-08-26] MEDS ORDERED: NS 1,000 ML IV ONE (09:40)
[2016-08-26] MEDS ORDERED: methylPREDNISolone SOD SUCC 125 MG/2 ML VIAL IVP ONE (09:40)
[2016-08-26] MEDS ORDERED: FAMOTIDINE 20 MG/NACL 50 ML IV ONE (09:40)
[2016-08-26] MEDS ORDERED: ASPIRIN EC 325 MG TAB PO ONE (09:40)
--- NOTE | 2016-08-26 10:03 | CPEKG ---
Heart Rate: 82 RR Interval: 732 P-R Interval: 156 QRSD Interval: 82 QT Interval: 380 QTC Interval: 444 P [place]: 65 QRS [place]: 52 T Wave [place]: 35 EKG Severity - NORMAL ECG - EKG Impression: SINUS RHYTHM EKG Impression: LEFT ATRIAL ENLARGEMENT Electronically Signed By: Casey Sutherland 27-Aug-2016 08:40:16
[2016-08-26] MEDS ORDERED: FAMOTIDINE 20 MG/NACL/50 ML BAG IV ONE (10:10)
[2016-08-26] MEDS ORDERED: methylPREDNISolone SOD SUCC 125 MG/2 ML VIAL ONE (10:10)
[2016-08-26 10:18] LABS: % IMMATURE GRANULYOCYTES 0.2 % (0.0-1.1); ABSOLUTE IMMATURE GRANULOCYTES 0.01 10^3/uL (0.00-0.10); ADD DIFF? NO; ADD MORPH? NO; ADD SCAN? NO; ATYPICAL LYMPHOCYTE FLAG 10 (0-99); FRAGMENT RBC FLAG 0 (0-99); HEMOGLOBIN 13.3 g/dL (12.6-16.3); LEFT SHIFT FLG 0 (0-99); LIPEMIA HEMOLYSIS FLAG 90 (0-99); MEAN CELL HEMOGLOBIN CONCENTR. 34.1 g/dL (32.4-36.7); MEAN PLATELET VOLUME 8.7 fL (8.7-11.7); PLATELET CLUMPS FLAG 0 (0-99); PLATELET COUNT 173 10^3/uL (150-400); RED BLOOD CELL COUNT 4.43 10^6/uL (4.18-5.33); RED CELL DISTRIBUTION WIDTH 14.2 % (11.5-15.2)
[2016-08-26 10:27] LABS: INR 1.04 (0.83-1.16); PROTIME(PATIENT) 13.5 SEC (12.0-15.0)
[2016-08-26] MEDS ORDERED: NITROGLYCERIN 0.4 MG BTL SL ONE (10:32)
[2016-08-26 10:38] LABS: ANION GAP 8 mEq/L (8-16); CALCIUM 9.3 mg/dL (8.5-10.4); CARBON DIOXIDE 29 mEq/l (22-31); CHLORIDE 104 mEq/L (97-110); CHOLESTEROL 183 mg/dL (140-220); CREATININE 0.7 mg/dL (0.6-1.0); GLOMERULAR FILTRATION RATE > 60; GLUCOSE 93 mg/dL (70-100); POTASSIUM 3.8 mEq/L (3.5-5.2); SODIUM 141 mEq/L (134-144); TRIGLYCERIDE 131 mg/dL (35-135); VERY LOW DENSITY LIPOPROTEINS 26 mg/dL (8-25)
[2016-08-26 10:39] LABS: CHOLESTEROL/HDL RATIO 3.39 RATIO (1.00-4.44); HIGH DENSITY LIPOPROTEIN 54 mg/dL (40-85); LDL/HDL RATIO 1.91 RATIO (1.00-3.22); LOW DENSITY LIPOPROTEIN 103 mg/dL (80-100); MAGNESIUM 2.4 mg/dL (1.6-2.3); NON-HIGH DENSITY LIPOPROTEIN 129 mg/dL (90-129)
[2016-08-26] MEDS ORDERED: NITROGLYCERIN 0.4 MG BTL SL PRN (10:51)
--- NOTE | 2016-08-26 10:53 | CPEKG ---
Heart Rate: 97 RR Interval: 619 P-R Interval: 148 QRSD Interval: 88 QT Interval: 360 QTC Interval: 458 P Weston: 45 QRS Weston: 45 T Wave [place]: -2 EKG Severity - ABNORMAL ECG - EKG Impression: SINUS RHYTHM EKG Impression: BORDERLINE INFERIOR Q WAVES Electronically Signed By: Casey Sutherland 27-Aug-2016 08:39:51
[2016-08-26] MEDS ORDERED: LIDOCAINE 1% 30 ML SDV ONE (11:43)
[2016-08-26] MEDS ORDERED: VERAPAMIL 5 MG/2 ML VIAL ONE (11:44)
[2016-08-26] MEDS ORDERED: MIDAZOLAM 2 MG/2 ML VIAL ONE ×3 (11:44→12:38)
[2016-08-26] MEDS ORDERED: HEPARIN 10,000 UNIT/10 ML MDV ONE (11:44)
[2016-08-26] MEDS ORDERED: IOPAMIDOL (ISOVUE-370) 150 ML BTL IV ONE (11:44)
[2016-08-26] MEDS ORDERED: fentaNYL 100 MCG/2 ML INJ ONE ×2 (11:44→12:38)
--- NOTE | 2016-08-26 13:47 | PDDXCAT ---
Diagnostic Cath Note - . Date: 08/26/16 Intervention: None *Procedure 1. selective coronary angiography 2. left heart catheterization 3. left ventriculogram Indication: CCS IV angina, intermediate risk MPI study revealing a small inferolateral perfusion deficit consistent with ischemia. The patient was actively experiencing chest discomfort while waiting for the start of the procedure. Access: Right radial artery (a plethysmography trace assisted Miguel's Test was used to document dual artery supply to the hand and index finger prior to access ). *Materials Left Heart Cath size: 5F Left Heart Cath materials: JL3.5, Justin Right, Pigtail *Findings-Selective Coronary Angiography LM: The left main is short, ~6 mm in size and bifurcates into an LAD and circumflex system. There is no evidence of flow-limiting disease. LAD: The proximal LAD is ~3.5 mm in size proximally and is calcified throughout. There is an eccentric 30% lesion in the LAD proper with DELMAR III flow. There is an ostial 60% lesion of the first major septal branch and a 70% ostial diagonal lesion. There is DELMAR III flow in both of these vessels. LCX: The proximal left circumflex is ~3.5 mm in size. There is maximal luminal stenosis of 5-10% without flow-limiting disease with DELMAR III flow throughout. RCA: The right coronary artery ~3 mm in size and dominant (gives rise to PDA and PLV branches). RCA has DELMAR III flow. No flow-limiting disease is identified. *Findings-Left Heart Catheterization EDP: 24 mmHg LVEF: 75% AO: 128/75/83 mmHg LVG: The visualized portion of the thoracic aorta appears to be within normal limits in size without evidence of garry dissection or aneurysm. There is hyperdynamic systolic function with ejection fraction of greater than 75% without segmental wall motion abnormalities. *Summary Complications: None Estimated blood loss: <50ml Closure method: TR Band Assessment/Conclusion: 1. Severe oneida vessel coronary artery disease that is flow-limiting in LAD branch vessels (ostial 60% lesion of the first major septal branch and a 70% ostial diagonal lesion -- DELMAR III flow). Given the location and small area of perfusion, the obstructions identified should be managed medically. PCI and stent implantation would be unlikely to significantly improve perfusion, relieve symptoms and is problematic as it would require bifurcation stenting including a stent in the LAD that is currently not required. 2. Hyperdynamic left ventricular systolic function with elevated ejection fraction >75%. Elevated LVEDP at 24 mmHg. The patient's blood pressure should be treated more aggressively to prevent the progression of hypertensive heart disease. Specifically, I would consider a beta carlos to treat the patient's chest discomfort, elevated LVEDP and hypercontractile state of the left ventricle. Patient Problems: Problems Problem Status Onset Abscess Acute Chest pain Acute Chest pain Acute Dyspnea Acute Paresthesias Acute
== END 2016-08-26 16:51 | disposition home or self-care (01) ==
LOC: FCATH 09:36
PROVIDERS: ATTEND Internal Medicine Cardiovascular Disease
DX: I25.119 Atherosclerotic heart disease of native coronary artery with unspecified angina pectoris (principal); R94.39 Abnormal result of other cardiovascular function study; I10 Essential (primary) hypertension; G20 Parkinson's disease; E78.5 Hyperlipidemia, unspecified; R25.1 Tremor, unspecified
CPT/HCPCS: J1200; J1644; J2250; J3010; Q9967

== ENCOUNTER 2016-09-25 06:28 | Observation (INO) | payer OTHER ==
[2016-09-25] MEDS ORDERED: DIAZEPAM 5 MG TAB PO ONE (06:36)
[2016-09-25] MEDS ORDERED: ASPIRIN EC 325 MG TAB PO ONE (06:36)
[2016-09-25] MEDS ORDERED: FAMOTIDINE 20 MG/NACL 50 ML IV ONE (06:36)
[2016-09-25] MEDS ORDERED: NS 1,000 ML IV ONE (06:36)
[2016-09-25] MEDS ORDERED: methylPREDNISolone SOD SUCC 125 MG/2 ML VIAL IVP ONE (06:36)
--- NOTE | 2016-09-25 06:50 | CPEKG ---
Heart Rate: 63 RR Interval: 952 P-R Interval: 156 QRSD Interval: 84 QT Interval: 412 QTC Interval: 422 P [place]: 67 QRS [place]: 52 T Wave [place]: 49 EKG Severity - NORMAL ECG - EKG Impression: SINUS RHYTHM Electronically Signed By: Karen Yee 25-Sep-2016 07:18:15
[2016-09-25 07:08] LABS: % IMMATURE GRANULYOCYTES 0.3 % (0.0-1.1); ABSOLUTE IMMATURE GRANULOCYTES 0.01 10^3/uL (0.00-0.10); ADD DIFF? NO; ADD MORPH? NO; ADD SCAN? NO; ATYPICAL LYMPHOCYTE FLAG 0 (0-99); FRAGMENT RBC FLAG 0 (0-99); HEMATOCRIT 42.3 % (38.0-47.0); HEMOGLOBIN 14.4 g/dL (12.6-16.3); LEFT SHIFT FLG 0 (0-99); LIPEMIA HEMOLYSIS FLAG 90 (0-99); MEAN CELL VOLUME 88.1 fL (81.5-99.8); MEAN PLATELET VOLUME 8.7 fL (8.7-11.7); PLATELET CLUMPS FLAG 0 (0-99); PLATELET COUNT 208 10^3/uL (150-400); RED CELL DISTRIBUTION WIDTH 13.9 % (11.5-15.2)
[2016-09-25 07:18] LABS: INR 0.99 (0.83-1.16)
[2016-09-25 07:21] LABS: ANION GAP 9 mEq/L (8-16); CALCIUM 9.8 mg/dL (8.5-10.4); CARBON DIOXIDE 28 mEq/l (22-31); CHLORIDE 103 mEq/L (97-110); CHOLESTEROL 152 mg/dL (140-220); CHOLESTEROL/HDL RATIO 3.04 RATIO (1.00-4.44); CREATININE 0.8 mg/dL (0.6-1.0); GLOMERULAR FILTRATION RATE > 60; GLUCOSE 105 mg/dL (70-100); HIGH DENSITY LIPOPROTEIN 50 mg/dL (40-85); LOW DENSITY LIPOPROTEIN 65 mg/dL (80-100); MAGNESIUM 2.3 mg/dL (1.6-2.3); NON-HIGH DENSITY LIPOPROTEIN 102 mg/dL (90-129); POTASSIUM 4.2 mEq/L (3.5-5.2); SODIUM 140 mEq/L (134-144); TRIGLYCERIDE 189 mg/dL (35-135); VERY LOW DENSITY LIPOPROTEINS 37 mg/dL (8-25)
[2016-09-25] MEDS ORDERED: MIDAZOLAM 2 MG/2 ML VIAL ONE (08:03)
[2016-09-25] MEDS ORDERED: LIDOCAINE 1% 30 ML SDV ONE (08:03)
[2016-09-25] MEDS ORDERED: VERAPAMIL 5 MG/2 ML VIAL ONE (08:03)
[2016-09-25] MEDS ORDERED: fentaNYL 100 MCG/2 ML INJ ONE (08:03)
[2016-09-25] MEDS ORDERED: IOPAMIDOL (ISOVUE-370) 150 ML BTL IV ONE ×2 (08:04→09:26)
[2016-09-25] MEDS ORDERED: HEPARIN 10,000 UNIT/10 ML MDV ONE (08:04)
[2016-09-25] MEDS ORDERED: BIVALIRUDIN 250 MG/5 ML VIAL IV ONE (09:13)
[2016-09-25] MEDS ORDERED: NITROGLYCERIN 1,500 MCG/15 ML VIAL MISC ONE (10:14)
[2016-09-25] MEDS ORDERED: PRASUGREL HCL 10 MG TAB ONE (10:24)
--- NOTE | 2016-09-25 10:41 | PDDXCAT ---
Diagnostic Cath Note - . Date: 09/25/16 Intervention: *Procedure 1. selective coronary angiography 2. intravascular ultrasound 3. PTCA and drug eluting stent implantation in the mid LAD 4. PTCA and drug eluting stent implantation in the proximal LAD Indication: CCS Class IV angina, known LAD disease. Access: Right femoral artery. *Materials Left Heart Cath size: 6F Left Heart Cath materials: JR4.0, Justin Right, EBU3.5, IVUS catheter, Emerge 3 x 15 mm balloon, 3 X 38 mm Synergy drug eluting stent, 2.5 x 15 mm NC Emerge balloon. 4 x 16 Synergy drug eluting stent *Findings-Selective Coronary Angiography LM: The left main is short, ~6 mm in size and bifurcates into an LAD and circumflex system. There is no evidence of flow-limiting disease. LAD: The proximal LAD is ~4 mm in size proximally and is calcified throughout. There is a ~70% (by IVUS mid LAD lesion with DELMAR III flow angiographically. There is an ostial 60% lesion of the first major septal branch and a 70% ostial diagonal lesion. There is DELMAR III flow in both of these vessels. Intravascular ultrasound was performed in the mid vessel as described below. LCX: The proximal left circumflex is ~3.5 mm in size. There is maximal luminal stenosis of 5-10% without flow-limiting disease with DELMAR III flow throughout. RCA: The right coronary artery ~3 mm in size and dominant (gives rise to PDA and PLV branches). RCA has DELMAR III flow. No flow-limiting disease is identified. *Intervention A 6 [place] EBU3.5 Guiding catheter was used for guide catheter support. A 0.014 " Intuition guide wire was inserted into the distal LAD via direct angiographic and fluoroscopic guidance. IVUS catheter was inserted into the distal LAD and intravascular ultrasound was performed through the mid vessel. IVUS revealed 68 % plaque area stenosis in the prox/mid LAD with DELMAR III flow angiographically. We proceeded with PTCA and drug eluting stent implantation given the patient's ongoing symptoms of angina at rest. The IVUS catheter was exchanged for a Emerge 3 x 15 mm balloon. The balloon was inserted into the mid LAD lesion and used pre-dilate the lesion. Status post balloon inflation, a 3 x 38 mm Synergy drug eluting stent was successfully deployed in the prox/mid vessel under a maximum of 11 saritha of pressure. The stent was post-dilated with a 3.25 x 15 mm NC Emerge balloon under a a maximum of 16 saritha of pressure. The NC balloon was removed and a lesion proximal to the stent was noted to be causing abnormal flow characteristics into the stented area; therefore, 4 x 16 Synergy drug eluting stent was placed proximal to and overlapping with the first stent. This stent was deployed successfully under the maximum of 16 saritha of pressure. Status post stent implantation IVUS was again performed in the region of stent implantation. This showed excellent stent geometry with 10% residual stenosis and DELMAR III flow angiographically. *Summary Complications: None Estimated blood loss: <50ml Closure method: Angioseal Assessment/Conclusion: 1. [place] vessel coronary artery disease including flow limiting obstruction in the mid/proximal LAD (70% plaque area stenosis via IVUS with DELMAR III flow angiographically). This lesion was successfully repaired with two Synergy drug eluting stents in the proximal LAD. There was 10% residual stenosis with excellent stent geometry via IVUS post stent implantation with DELMAR III flow angiographically. No branch vessel loss was documented. The patient will need to be on dual-antiplatelet therapy for at least 1 year status post stent implantation. Cholesterol lowering therapy to achieve a non HDL cholesterol of less than 100mg/dL is also recommended. Patient Problems: Problems Problem Status Onset Abscess Acute Chest pain Acute Chest pain Acute Dyspnea Acute Paresthesias Acute
[2016-09-25] MEDS ORDERED: LORazepam 2 MG/ML INJ IVP PRN (10:46)
[2016-09-25] MEDS ORDERED: NITROGLYCERIN 0.4 MG BTL SL PRN (10:46)
[2016-09-25] MEDS ORDERED: ATROPINE SULFATE 1 MG/10 ML SYR IVP PRN (10:46)
[2016-09-25] MEDS ORDERED: PRASUGREL HCL 10 MG TAB PO ONE (10:46)
[2016-09-25] MEDS ORDERED: TEMAZEPAM 15 MG CAP PO PRN (10:46)
--- NOTE | 2016-09-25 10:49 | CPEKG ---
Heart Rate: 64 RR Interval: 938 P-R Interval: 160 QRSD Interval: 90 QT Interval: 416 QTC Interval: 430 P Hir[place]: 58 QRS [place]: 46 T Wave [place]: 45 EKG Severity - NORMAL ECG - EKG Impression: SINUS RHYTHM Electronically Signed By: Karen Yee 25-Sep-2016 12:11:51
[2016-09-25] MEDS ORDERED: NS 1,000 ML IV SCH (11:00)
[2016-09-25] MEDS ORDERED: PSYLLIUM METAMUCIL 1 PKT PO PRN (14:14)
[2016-09-25] MEDS: ACETAMINOPHEN 325 MG TAB PO PRN ×2 (14:25→20:18)
[2016-09-25] MEDS: LEVODOPA PO SCH ×2 (16:04→18:19)
[2016-09-25] MEDS: CARBIDOPA PO SCH ×2 (16:04→18:19)
[2016-09-25] MEDS ORDERED: CALCIUM CARBONATE 500 MG CHEWABLE TAB PO PRN (16:15)
[2016-09-25] MEDS: ISOSORBIDE MONONITRATE 30 MG TAB.SR PO SCH (20:15)
[2016-09-25] MEDS: DOCUSATE SODIUM 100 MG CAP PO PRN (20:17)
[2016-09-25] MEDS ORDERED: ROSUVASTATIN CALCIUM 10 MG TAB PO SCH (21:00)
[2016-09-25] MEDS ORDERED: clonazePAM 0.5 MG TAB PO SCH (21:00)
[2016-09-25] MEDS ORDERED: METOPROLOL SUCCINATE XR 25 MG TAB PO SCH (21:00)
[2016-09-26 05:01] LABS: % IMMATURE GRANULYOCYTES 0.4 % (0.0-1.1); ABSOLUTE IMMATURE GRANULOCYTES 0.04 10^3/uL (0.00-0.10); ADD DIFF? NO; ADD MORPH? NO; ADD SCAN? NO; ATYPICAL LYMPHOCYTE FLAG 0 (0-99); FRAGMENT RBC FLAG 0 (0-99); HEMATOCRIT 39.4 % (38.0-47.0); HEMOGLOBIN 13.1 g/dL (12.6-16.3); LEFT SHIFT FLG 0 (0-99); LIPEMIA HEMOLYSIS FLAG 80 (0-99); MEAN CELL HEMOGLOBIN 29.6 pg (27.9-34.1); MEAN CELL HEMOGLOBIN CONCENTR. 33.2 g/dL (32.4-36.7); MEAN CELL VOLUME 88.9 fL (81.5-99.8); MEAN PLATELET VOLUME 8.7 fL (8.7-11.7); PLATELET CLUMPS FLAG 0 (0-99); PLATELET COUNT 207 10^3/uL (150-400); RED BLOOD CELL COUNT 4.43 10^6/uL (4.18-5.33); RED CELL DISTRIBUTION WIDTH 13.9 % (11.5-15.2)
[2016-09-26 05:28] LABS: ALBUMIN 4.1 g/dL (3.5-5.0); ANION GAP 8 mEq/L (8-16); ASPARTATE AMINOTRANSFERASE 20 IU/L (14-46); BILIRUBIN,TOTAL 0.6 mg/dL (0.1-1.4); CALCIUM 9.4 mg/dL (8.5-10.4); CARBON DIOXIDE 26 mEq/l (22-31); CHLORIDE 107 mEq/L (97-110); CREATININE 0.7 mg/dL (0.6-1.0); GLOMERULAR FILTRATION RATE > 60; GLUCOSE 119 mg/dL (70-100); LACTATE DEHYDROGENASE 598 IU/L (313-618); MAGNESIUM 2.4 mg/dL (1.6-2.3); POTASSIUM 4.8 mEq/L (3.5-5.2); SODIUM 141 mEq/L (134-144)
[2016-09-26] MEDS: CARBIDOPA PO SCH ×2 (06:01→11:06)
[2016-09-26] MEDS: LEVODOPA PO SCH ×2 (06:01→11:06)
[2016-09-26 07:27] VITALS: BP 122/66; PULSE 72; RESP 20; TEMP 97.5; O2SAT 94
[2016-09-26] MEDS: ISOSORBIDE MONONITRATE 30 MG TAB.SR PO SCH (07:30)
[2016-09-26] MEDS: DOCUSATE SODIUM 100 MG CAP PO PRN (08:50)
[2016-09-26] MEDS ORDERED: Herbals/Supplements -Info Only PO SCH (09:00)
[2016-09-26] MEDS ORDERED: POTASSIUM CL 20 MEQ TAB PO SCH (09:00)
[2016-09-26] MEDS ORDERED: PRASUGREL HCL 10 MG TAB PO SCH (09:00)
[2016-09-26] MEDS ORDERED: ASPIRIN EC 325 MG TAB PO SCH (09:00)
[2016-09-26] MEDS ORDERED: VITAMIN B COMPLEX 1 EA CAP/TAB PO SCH (09:00)
[2016-09-26] MEDS ORDERED: MULTIVITAMINS 1 EACH TAB PO SCH (09:00)
[2016-09-26] MEDS ORDERED: CITALOPRAM 20 MG TAB PO SCH (09:00)
[2016-09-26] MEDS ORDERED: amLODIPine BESYLATE 5 MG TAB PO SCH (09:00)
--- NOTE | 2016-09-26 09:04 | CPEKG ---
Heart Rate: 66 RR Interval: 909 P-R Interval: 152 QRSD Interval: 90 QT Interval: 408 QTC Interval: 428 P [place]: 72 QRS [place]: 62 T Wave [place]: 42 EKG Severity - NORMAL ECG - EKG Impression: SINUS RHYTHM Electronically Signed By: Karen Yee 26-Sep-2016 11:52:13
--- NOTE | 2016-09-26 12:07 | GDS ---
[f rep st] DISCHARGE SUMMARY ADMISSION DIAGNOSES: 1. Chest pain. 2. Known history of coronary artery disease. 3. Hypertension. 4. Parkinson's. 5. Hyperlipidemia. DISCHARGE DIAGNOSES: 1. Coronary artery disease. 2. Status post intravascular ultrasound of the left anterior descending artery. 3. Status post percutaneous coronary intervention of the left anterior descending with MAY stent im [place] of a 30 x 38 Synergy stent. 4. Hypertension. 5. Hyperlipidemia. 6. Parkinson disease. PROCEDURES DONE DURING HOSPITALIZATION: 1. Electrocardiogram. 2. Diagnostic coronary catheterization. 3. Intravascular ultrasound of left anterior descending artery. 4. Percutaneous coronary intervention with MAY implantation of a 30 x 38 synergy stent into the pro ximal LAD. BRIEF HISTORY: Please see history and physical: The patient is a 60-year-old female who has been h aving ongoing intermittent chest pressure, she has had recent history of coronary catheterization by angiograms showing an ostial 60% lesion in her LAD initially. She continues to have symptoms despi te maximum medical therapy. She had seen Meme Otoole, nurse practitioner of our practice, who discussed it with Dr. Maurer, and felt that a further evaluation of her LAD lesion should be done. She was scheduled for coronary catheterization with plans for intravascular ultrasound of LAD lesio n. HOSPITAL COURSE: Patient was admitted to the CVC, prepped for procedure, and taken to the cardiac c atheterization lab. There Dr. Maurer did a diagnostic heart catheterization on her, finding left ma in was 6 mm in size, no with no evidence of flow-limiting disease, and the LAD was 4 mm in size with calcification throughout. There was a 70% lesion in the proximal section, this was reevaluated. T he circumflex was 3.5 in diameter with minimal luminal irregular, less than 5 to 10, with no flow-limiting disease. RCA was 3 mm in size, dominant, with DELMAR-3 flow and no flow-limiting di sease. At that point an intravascular ultrasound was done at the LAD, showing probably a greater th an 70% or greater lesion. It was decided at that point, due to her ongoing symptoms, and on maximum medical therapy, that lesion would be stented, in which Dr. Maurer successfully implanted a 30 x 38 drug-eluting stent, reporting only a post procedure of 10% residual stenosis. No complications fro m procedure. Patient was taken back to the CVC and ultimately to the PCU overnight. Her vital sign s remained stable, she has remained in sinus rhythm with no malignant arrhythmias noted on continuou s cardiac monitoring. She reports no further episodes of chest pressure or pain. She has been up a nd walking the unit without any difficulties, she has had no bleeding issues to her access site or g roin site. PHYSICAL EXAMINATION: GENERAL APPEARANCE: A medium-built, well-groomed female. She is a lert and oriented to person, place, time, and situation, appears to be under no acute distress. VIT AL SIGNS: Current vital signs are a blood pressure of 122/66, heart rate of 72, respirations are 20 , saturating 94% on room air. Temperature of 36.4 degrees Celsius. HEENT: Head is normocephalic. Lips and tongue are pink and moist with no signs of cyanosis, conjunctivae pink. NECK: Trachea is midline, +2 carotid pulses bilateral. No auscultated bruits, no jugular vein distention. RESPIRAT ORY: Lungs are clear to auscultation, no rhonchi, rales or wheezes. No accessory muscle use, no in tercostal muscle retraction noted. CARDIAC: Regular rate, regular rhythm, S1 and S2, no S3 or S4, rubs gallops or murmurs noted. ABDOMEN: Soft, nontender, bowel sounds x4 quadrants. No organomega ly, no palpable masses. SKIN: [place], warm, dry. No cyanosis, no clubbing, no peripheral edema. VA SCULAR: With +2 carotids bilateral, +2 radials bilateral, +1 posterior tibial and dorsal pedal puls es bilateral. Groin site, catheter insertion site with no redness, swelling, drainage, ecchymosis, or hematoma, no auscultated bruit. NEUROLOGIC: Cranial nerves II-XII grossly intact. LABORATORY DATA: Laboratory studies drawn today show a WBC of 10.2, hemoglobin of 13.1, hematocrit of 39.4, platelet count of 207, sodium of 141, potassium 4.8, chloride 107, CO2 of 26, BUN 17, creat inine 0.7, glucose of 119, calcium 9.4, phosphorus 3.4, magnesium 2.4, total bilirubin 0.6, AST 20, lactate 598, albumin 4.1. Patient on admission had a fasting lipid panel done showing triglycerides 189, cholesterol 152, LDL 65, HDL 50. PROCEDURES: Diagnostic heart catheterization, intravascular ultrasound and percutaneous coronary in tervention as mentioned above. A.M. electrocardiogram shows sinus rhythm with normal axis, with no ST or T-wave abnormalities sugge sting of ischemia. DISCHARGE DISPOSITION: Patient will be discharged home in stable condition. She is under activity restrictions of not lifting more than 10 pounds for the next week and no strenuous activities for e next 2 weeks. DISCHARGE MEDICATIONS: Please see discharge medication reconciliation sheet, note patient's aspirin therapy has been increased to 325 mg p.o. once daily. She has also been started on Effient at 10 m g p.o. daily, and her isosorbide has been discontinued. DISCHARGE INSTRUCTIONS: Post percutaneous coronary intervention, discharge instructions went over w ith the patient and her friend, this included monitoring for signs of infection, activity restrictio ns, bathing precautions, and the importance of medication compliance, especially with anti-platelet therapy in the setting of post PCI of the LAD. At the time of discharge the patient and her friend both verbalized understanding. She has been seen by cardiac rehab, and was planning to enroll in [facility] next week. She has a followup appointment set up with Meme Otoole NP of our practice, next week. At the time of discharge patient has no further questions. She has been told that if any qu estions or concerns come up post hospital discharge, they are to notify our office or return to the hospital. Total time spent on discharge, greater than 30 minutes. /[id number]/MODL
== END 2016-09-26 11:58 | disposition home or self-care (01) ==
LOC: FCATH 06:28 → F2W 10:40
PROVIDERS: ADMIT Internal Medicine Interventional Cardiology; ATTEND Internal Medicine Interventional Cardiology
PROC: B2151ZZ Fluoroscopy of Left Heart using Low Osmolar Contrast (ICD-10-PCS; principal; 2016-09-25)
PROC: 4A023N7 Measurement of Cardiac Sampling and Pressure, Left Heart, Percutaneous Approach (ICD-10-PCS; principal; 2016-09-25)
PROC: B2111ZZ Fluoroscopy of Multiple Coronary Arteries using Low Osmolar Contrast (ICD-10-PCS; principal; 2016-09-25)
PROC: 027035Z Dilation of Coronary Artery, One Artery with Two Drug-eluting Intraluminal Devices, Percutaneous Approach (ICD-10-PCS; principal; 2016-09-25)
PROC: B245ZZ3 Ultrasonography of Left Heart, Intravascular (ICD-10-PCS; principal; 2016-09-25)
DX: I25.119 Atherosclerotic heart disease of native coronary artery with unspecified angina pectoris (principal); E78.00 Pure hypercholesterolemia, unspecified; I10 Essential (primary) hypertension; G20 Parkinson's disease; Z91.041 Radiographic dye allergy status
CPT/HCPCS: 92928; 92978; 93005; 93454; C1725; C1753; C1769; C1887; G0378; C1760; C1874; C9600; J0583; J1200; J1644; J2250; J3010; Q9967

== ENCOUNTER → 2016-11-17 | Outpatient (CLI) | payer OTHER | LOC: FIMAGING 08:49 | PROVIDERS: ATTEND Internal Medicine | DX: Z12.31 Encounter for screening mammogram for malignant neoplasm of breast (principal) | CPT/HCPCS: G0202 ==

== ENCOUNTER → 2016-11-19 | Outpatient (CLI) | payer OTHER | LOC: FIMAGING 09:35 | PROVIDERS: ATTEND Physician Assistant | DX: M54.2 Cervicalgia (principal); M50.30 Other cervical disc degeneration, unspecified cervical region; M48.02 Spinal stenosis, cervical region; M48.04 Spinal stenosis, thoracic region; M54.16 Radiculopathy, lumbar region; M48.06 Spinal stenosis, lumbar region; M51.36 Other intervertebral disc degeneration, lumbar region ==

== ENCOUNTER → 2017-02-27 | Outpatient (CLI) | payer OTHER ==
[~2017-02-27] MED LIST: IOPAMIDOL (ISOVUE-300) 100 ML BTL ONE
== END ==
LOC: FIMAGING 13:00
PROVIDERS: ATTEND Internal Medicine
DX: K59.00 Constipation, unspecified (principal); G20 Parkinson's disease; M48.061 Spinal stenosis, lumbar region without neurogenic claudication
CPT/HCPCS: Q9967

== ENCOUNTER → 2017-10-14 | Outpatient (CLI) | payer OTHER | PROVIDERS: ATTEND Physician Assistant Medical | DX: R13.10 Dysphagia, unspecified (principal); G20 Parkinson's disease | CPT/HCPCS: 92611-GN ==